=== PATIENT | male | born 1965 | race African-American/Black ===

== ENCOUNTER 2023-06-01 16:35 | Inpatient (IN) ==
[2023-06-01] MEDS: OPTIRAY 320 125ml IV ONE (16:27)
[~2023-06-01 16:35] MED LIST: LABETALOL HCL IV 5 MG/ML 20ML IV PRN
--- NOTE | 2023-06-01 16:43 | Emergency Department Note ---
Impression & Plan Acute CVA (cerebrovascular accident), Stroke-like symptoms ED Provider Note NAME: AD [id number] KADEN AGE: 58 SEX: M : 1965 ARRIVES VIA: Ambulance INFORMANT: Patient and EMS report ED PROVIDER(S): Tomer Mahoney MD CHIEF COMPLAINT: Left-sided weakness, slurred speech, facial droop MEDICAL DECISION MAKING: Patient presented as a code stroke by the time my examination after returning from CT the patient did not have any overt findings on his exam I did speak with telestroke neurologist Dr. Mario who did evaluate the patient via telestroke cart. Patient's blood work shows a normal white count mild anemia hemoglobin 13 with a normal platelet count and the patient's kidney functions unremarkable troponin not elevated. CT head negative. I did speak with on-call radiology Dr. Fritz who thought the patient may have had an area of sylvian Epistat patent. I did speak with Dr. Mario he stated that he was concerned that patient might have a carotid web versus focal dissection but states that management of care would be dual antiplatelet therapy. The patient was loaded with 300 of Plavix and 324 of aspirin. Patient not a TNK candidate for heparin candidate No need for transfer at this time per Dr. Mario. He did recommend keeping magnesium above 2 and order IV fluids. I did speak with the on-call hospitalist service Shazia Arias PA-C and the patient was admitted by the medicine service. Critical Care: I have personally spent 60 minutes of critical care time in direct management of this patient. This includes bedside care, interpretation of diagnostic studies, and testing, discussion with consultants, patient, and family members, and other require inpatient management activities. This 60 EMS report minutes is in excess of all separately billable procedures. Discussion w/ other healthcare providers: Shazia Arias PA-C with Dr. Eliezer Bonds inpatient medicine service Dr. Mario telestroke neurology [facility] Prior /Outside records reviewed: none Differential diagnosis: Infection, dehydration, metabolic abnormality, hypo/hyperglycemia, electrolyte imbalance, anemia, UTI, pneumonia, thyroid dysfunction among others were considered. Diagnostics, as interpreted by me: ECG: Sinus bradycardia, rate 55, normal intervals, normal axis, T wave version in lead III noncontiguous leads no ST elevations. Cardiac monitoring: An order was placed for continuous cardiac monitoring. The monitor shows a rate of 56 with sinus rhythm. Patient was placed on pulse oximetry Medical decision rules: none Imaging studies: I informally interpreted the patient's CT head does not show obvious ICH with formal report to follow. HPI: Patient presents due to concern for possible stroke. Last known well was 1514 and I did receive a medical command called via EMS reported that he had left-sided symptoms difficulty with ambulation left-sided weakness slurred Siuta and facial droop. When EMS arrived patient had an SBP in the 120s afebrile heart rate was normal satting well on room air and not tachypneic. 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 Patient denies any recent head strike or LOC does not take any blood thinning medication. The patient does have a history of mental wellness issues and does take medications for anxiety depression and bipolar disorder. Patient does [facility] and states he has been there for about 1 year. Patient states that his symptoms seem to have improved but they did last about 30 minutes in duration. PAST MEDICAL HISTORY: See Below PAST SURGICAL HISTORY: See Below SOCIAL HISTORY: See Below HOME MEDICATIONS: See Below ALLERGIES: See Below VITALS: See Below PHYSICAL EXAMINATION: GENERAL: NAD, non-toxic. EYE EXAM: Normal conjunctiva. PERRL, no anisocoria and EOM's grossly intact w/o pain. OROPHARYNX: Moist mucus membranes, grossly normal dentition. NECK: Trachea midline, no stridor. Supple, no nuchal rigidity, no adenopathy, non-tender. No signs of meningismus. FROM of the neck with good chin to chest and neck extension. LUNGS: Clear to auscultation. Normal chest wall mechanics. HEART: NSR, no MRG. ABDOMEN: Abdomen soft, non-tender, no masses, no rebound or guarding. BACK: No CVA TTP. SKIN: No rashes and no bruising. UPPER EXTREMITIES: Upper extremities are grossly normal. LOWER EXTREMITIES: Grossly normal, no edema. NEURO EXAM: A&O x3, cranial nerves II-XII grossly intact, normal speech, moves all 4 extremities. Good [id number], no drift and no sensory deficits. Past Med/Surg History Medical History (Updated 06/05/23 @ 15:55 by Tomer Mahoney MD) Mood disorder Surgical History (Updated 06/01/23 @ 21:49 by Shazia Arias PA-C) H/O shoulder surgery Family History (Updated 06/01/23 @ 21:50 by Shazia Arias PA-C) Other No significant family history Social History Smoking Status: Unknown if ever smoked Hx Alcohol Use: No Hx Substance Use: No Preferred Language: Surinamese Communication Ability: Unable Medical Delivery Driver Required: No Beliefs That Will Affect Care: None Current Living Situation: Other Current Living Situation Comment: [facility] Other Information That Helps Us Care for You: No Feels Safe at Home: Yes Safety Concerns: Feels Safe At This Time Assistive Devices: None Allergies Allergies Allergy/AdvReac Type Severity Reaction Status Date / Time risperidone [From Risperdal] Allergy Unknown Verified 06/01/23 19:42 Home Meds Home Medications Medication Instructions Recorded Confirmed aripiprazole 15 mg tablet (Abilify) 15 mg PO HS 06/01/23 06/01/23 benztropine 0.5 mg tablet 0.5 mg PO HS 06/01/23 06/01/23 hydroxyzine pamoate 50 mg capsule 150 mg PO HS 06/01/23 06/01/23 omeprazole 20 mg capsule,delayed 20 mg PO DAILY 06/01/23 06/01/23 release trazodone 100 mg tablet 200 mg PO HS 06/01/23 06/01/23 Results & Data (ED) Vital Signs Vital Signs - 24 hr 06/01/23 16:13 Temperature 36.7 C Temperature Source Oral Pulse Rate 57 L Respiratory Rate 15 Blood Pressure 133/83 Blood Pressure Mean 99 Pulse Oximetry 97 Oxygen Delivery Method Room Air Sepsis Recent Fever Within 48 Hours No Sepsis New/Unexplained Change in Mental Status No Sepsis Action Taken by Nursing No Action Required Home Medications Current Medication List: was personally reviewed by me Laboratory Data Attestation: I reviewed the patient's lab results. 06/02/23 14:07 06/02/23 14:07 Lab Results 06/01/23 Range/Units 16:39 WBC 9.12 (4.8-10.8) K/ul RBC 4.22 L (4.70-6.10) M/uL Hgb 13.2 L (14.0-18.0) g/dl Hct 37.6 L (42.0-52.0) % MCV 89.1 (80.0-100.0) fL MCH 31.3 (25.0-34.0) pg MCHC 35.1 (32.0-36.0) g/dL RDW Std Deviation 39.3 (36.4-46.3) fL RDW Coeff of Lakeisha 12.1 (11.5-14.5) % Plt Count 297 (130-400) K/uL MPV 9.5 (9.4-12.4) fL Immature Gran % (Auto) 0.2 % Neut % (Auto) 60.8 % Lymph % (Auto) 29.5 % Jay % (Auto) 7.6 % Eos % (Auto) 1.6 % Baso % (Auto) 0.3 % Neut # (Auto) 5.54 (1.40-6.50) K/uL Lymph # (Auto) 2.69 (1.20-3.40) K/uL Jay # (Auto) 0.69 H (0.11-0.59) K/uL Eos # (Auto) 0.15 (0.00-0.50) K/uL Baso # (Auto) 0.03 (0.00-0.20) K/uL Immature Gran # (Auto) 0.02 (0.01-0.20) K/uL PT 11.4 (9.0-12.0) Seconds INR 1.0 (0.9-1.1) APTT 28 (21-31) Seconds PTT Ratio 1.0 Sodium 134 L (136-145) mmol/L Potassium 4.1 (3.5-5.1) mmol/L Chloride 106 (98-107) mmol/L Carbon Dioxide 23 (21-32) mmol/L Anion Gap 5 (3-11) BUN 19 (6-23) mg/dl Creatinine 1.05 (0.6-1.4) mg/dl Est Cr Clr Drug Dosing 93.8 ml/min Est GFR ( Amer) 91.5 ml/min Est GFR (Non-Af Amer) 79.0 ml/min BUN/Creatinine Ratio 18.1 (10-20) Glucose 98 (70-99(Fasting)) mg/dl Calcium 8.9 (8.6-10.3) mg/dl Magnesium 1.8 (1.7-2.4) mg/dl Total Bilirubin 0.3 (0.2-1.0) mg/dl AST 18 (13-39) U/L ALT 22 (7-52) U/L Alkaline Phosphatase 106 H (34-104) U/L Troponin I High Sens < 2.3 (0-20) pg/ml Total Protein 6.7 (6.0-8.3) gm/dl Albumin 3.9 (3.4-5.0) gm/dl Globulin 2.8 (2.5-4.0) gm/dl Albumin/Globulin Ratio 1.4 (0.9-2) Administered Medications Discontinued Medications Aripiprazole (Aripiprazole 15 Mg Tab) 15 mg PO [facility] Stop: 07/01/23 21:29 Last Admin: 06/01/23 21:47 Dose: 15 mg Documented By: AMY Aspirin (Aspirin Chew 324 Mg) 324 mg PO NOW STA Stop: 06/01/23 17:18 Last Admin: 06/01/23 17:26 Dose: 324 mg Documented By: SUMMER Aspirin (Aspirin 81 Mg Ectab) 81 mg PO [facility] Stop: 07/02/23 08:59 Last Admin: 06/02/23 09:12 Dose: 81 mg Documented By: GURJIT Benztropine Mesylate (Benztropine Mesylate 0.5 Mg Tab) 0.5 mg PO [facility] Stop: 07/01/23 21:29 Last Admin: 06/01/23 21:47 Dose: 0.5 mg Documented By: AMY Clopidogrel Bisulfate (Clopidogrel Bisulfate 300 Mg Tab) 300 mg PO NOW STA Stop: 06/01/23 17:18 Last Admin: 06/01/23 17:26 Dose: 300 mg Documented By: SUMMER Clopidogrel Bisulfate (Clopidogrel Bisulfate 75 Mg Tab) 75 mg PO [facility] Stop: 07/02/23 08:59 Last Admin: 06/02/23 09:12 Dose: 75 mg Documented By: GURJIT Gadobutrol (Gadobutrol 65ml Vial) 10 ml IV ONCE ONE Stop: 06/01/23 19:20 Last Admin: 06/01/23 19:19 Dose: 10 ml Documented By: LENORA Heparin Sodium (Porcine) (Heparin Sod 5,000 Unit/0.5 Ml Vial) 5,000 units SQ Q8 [facility] Stop: 07/01/23 21:59 Last Admin: 06/02/23 06:26 Dose: 5,000 units Documented By: Admin: 06/01/23 21:48 Dose: 5,000 units Documented By: AMY Hydroxyzine HCl (Hydroxyzine Hcl 25 Mg Tab) 150 mg PO HS ROMIE Stop: 07/01/23 21:29 Last Admin: 06/01/23 21:47 Dose: 150 mg Documented By: AMY Magnesium Sulfate/Dextrose (Magnesium Sulfate / D5w) 1 gm in 100 mls @ 100 mls/hr IV NOW STA Stop: 06/01/23 18:17 Last Infusion: 06/01/23 19:57 Dose: Infused Documented By: [facility] Admin: 06/01/23 17:28 Dose: 100 mls/hr Documented By: ARS Sodium Chloride (Nss) 1,000 mls @ 999 mls/hr IV .Q1H1M ONE Stop: 06/01/23 18:19 Last Infusion: 06/01/23 21:14 Dose: Infused Documented By: Admin: 06/01/23 17:28 Dose: 999 mls/hr Documented By: ARS Sodium Chloride (Nss) 500 mls @ 125 mls/hr IV .Q4H ROMIE Stop: 07/01/23 19:44 Last Admin: 06/02/23 01:34 Dose: Not Given Documented By: Infusion: 06/02/23 01:33 Dose: Infused Documented By: Admin: 06/01/23 21:48 Dose: 125 mls/hr Documented By: GH Sodium Chloride (Nss) 1,000 mls @ 125 mls/hr IV .Q8H ROMIE Stop: 07/02/23 01:29 Last Admin: 06/02/23 09:13 Dose: 125 mls/hr Documented By: Infusion: 06/02/23 09:13 Dose: Infused Documented By: Admin: 06/02/23 01:31 Dose: 125 mls/hr Documented By: AMY Ioversol (Optiray 320 125ml) 118 ml IV ONCE ONE Stop: 06/01/23 16:26 Last Admin: 06/01/23 16:27 Dose: 118 ml Documented By: GRACE Ioversol (Optiray 320 125ml) 119 ml IV ONCE ONE Stop: 06/02/23 13:46 Last Admin: 06/02/23 13:46 Dose: 119 ml Documented By: FLORENCIA Ondansetron HCl (Ondansetron Inj 2 Mg/Ml 2 Ml Vial) 4 mg IV Q6H PRN PRN Reason: Nausea Stop: 07/01/23 21:07 Last Admin: 06/02/23 15:09 Dose: 4 mg Documented By: GLORY Pantoprazole Sodium (Pantoprazole 40 Mg Tab) 40 mg PO DAILY ROMIE Stop: 07/02/23 08:59 Last Admin: 06/02/23 09:12 Dose: 40 mg Documented By: GURJIT Rosuvastatin Calcium (Rosuvastatin Calcium 20 Mg Tab) 20 mg PO QAM ROMIE Stop: 07/02/23 08:59 Last Admin: 06/02/23 09:12 Dose: 20 mg Documented By: GURJIT Trazodone HCl (Trazodone Hcl 100 Mg Tab) 200 mg PO HS ROMIE Stop: 07/01/23 21:29 Last Admin: 06/01/23 21:47 Dose: 200 mg Documented By: AMY Imaging Data Radiologist's Impression: Head CT 06/01/23 16:15 CT OF THE HEAD WITHOUT CONTRAST CLINICAL HISTORY: neuro deficit, acute stroke suspected COMPARISON STUDY: No previous studies for comparison. CT DOSE: 1123.21 mGy.cm TECHNIQUE: Helical axial images of the head were obtained without IV contrast. Automated exposure control was utilized for the study. A dose lowering technique was utilized adhering to the principles of ALARA. FINDINGS: No acute intracranial hemorrhage, midline shift or mass effect is present. There is possible hyperdensity within a sylvian branch of the right middle cerebral artery on image 9 of 28. The ventricular system is unremarkable. The basal cisterns are patent. No extra-axial collections are present. There are no findings to suggest acute dural sinus thrombosis or acute territorial infarct. No significant calvarial abnormalities are present. Visualized portions of the sinuses and mastoid air cells are clear. IMPRESSION: 1. No acute intracranial hemorrhage or mass effect. 2. Possible hyperdensity within the sylvian branch of the right middle cerebral artery. This may reflect thrombus and could be correlated with clinical evidence for a right MCA territory stroke. MRI of the brain could be obtained for further evaluation. Findings discussed with Dr. Mahoney at time of dictation. ACT 112: Negative or not required by law. Electronically signed by: Manuel Fritz M.D. 06/01/2023 4:42 PM Head CTA 06/01/23 16:15 CTA ANGIOGRAPHY OF THE HEAD CLINICAL HISTORY: neuro deficit, acute stroke suspected COMPARISON STUDY: No previous studies for comparison. TECHNIQUE: Helical axial images of the head were obtained following uneventful intravenous administration of 118 cc of Optiray. Sagittal and coronal reconstructions were viewed as well as maximal intensity projections on an independent 3-D workstation. Automated exposure control was utilized for the study. A dose lowering technique was utilized adhering to the principles of ALARA. FINDINGS: No acute intracranial hemorrhage was identified on the head CT will be reported separately. Ventricular system is normal. Basal cisterns are patent. There are no extra axial collections. There is possible occlusion at the origin of a sylvian branch of the right middle cerebral artery on axial image 106 of 258. This could correspond to the hyperdense focus on head CT. The left M1 and M2 segments are patent. The left A2 segment is hypoplastic. Posterior circulation is intact. Right vertebral artery is dominant. There is no intracranial aneurysm. IMPRESSION: Possible occlusion at the origin of a sylvian branch of the right middle cerebral artery. This could be correlated with clinical evidence for an acute right MCA territory infarct. MRI could be obtained as indicated. ACT 112: Negative or not required by law. Electronically signed by: Manuel Fritz M.D. 06/01/2023 4:53 PM Neck CTA 06/01/23 16:15 CT ANGIOGRAPHY OF THE NECK WITH CONTRAST CLINICAL HISTORY: neuro deficit, acute stroke suspected COMPARISON STUDY: No previous studies for comparison. Technique: CT angiography of the carotid and vertebral arteries was obtained using Optiray and 3D reconstruction on an independent workstation. NASCET criteria was utilized. Automated exposure control was utilized for the study. A dose lowering technique was utilized adhering to the principles of ALARA. Findings: The bilateral vertebral arteries are patent. The left common carotid and cervical internal carotid arteries are patent. Shelf-like indentation of the proximal right internal carotid artery is noted. This is probably due to noncalcified atherosclerotic plaque. This results in approximate 40-50% stenosis of the proximal right internal carotid artery. There is no aneurysm within the neck. No acute dissection is present. IMPRESSION: 1. Focal shelf-like narrowing of the proximal right internal carotid artery which results in 40-50% narrowing. This is likely due to noncalcified atherosclerotic plaque or a carotid web. A dissection is considered less likely. 2. No additional stenoses within the bilateral common carotid, cervical internal carotid or vertebral arteries. ACT 112: Negative or not required by law. Electronically signed by: Manuel Fritz M.D. 06/01/2023 4:49 PM Brain MRI 06/01/23 17:19 MRI OF THE BRAIN WITHOUT CONTRAST CLINICAL HISTORY: L sided weakness COMPARISON STUDY: Head CT performed earlier today. TECHNIQUE: Utilizing a 1.5 Lizzie magnet and dedicated coil, multiplanar, multiecho imaging of the brain was performed without IV contrast. FINDINGS: There is a 3.9 x 1.7 cm focus of restricted diffusion within the right frontotemporal region. This is hypointense on the ADC map. This involves the insular cortex. This is consistent with an acute infarct. There is subtle associated FLAIR signal abnormality. There is no mass effect. There is no evidence for hemorrhagic conversion. No additional acute infarcts are present. Ventricular system is normal. Basal cisterns are patent. No extra axial collections are present. Calvarial signal is normal. No evidence for sinusitis. There is no mastoid fluid. IMPRESSION: 3.9 x 1.7 cm right frontotemporal acute infarct. This corresponds to the site of vessel occlusion on CTA. No mass effect. Subtle associated FLAIR signal abnormality. No hemorrhage. ACT 112: Negative or not required by law. Electronically signed by: Manuel Fritz M.D. 06/01/2023 7:10 PM Head MRA 06/01/23 17:20 MRA OF THE INTRACRANIAL CIRCULATION WITHOUT CONTRAST CLINICAL HISTORY: eval L sided weakness COMPARISON STUDY: Head CT and CTA of the head performed earlier today. TECHNIQUE: Utilizing a 1.5 Lizzie magnet and 3-D [id number] technique, unenhanced MRA of the intracranial circulation was obtained. FINDINGS: There is occlusion of a sylvian branch of the right middle cerebral artery shown on axial image 92 of 208. This corresponds to the site of occlusion shown on CT performed earlier today and the acute infarct shown on MRI of the brain which will be reported separately. There is asymmetric diminished flow within the right sylvian vessels. Otherwise, the intracranial vessels are patent. There is no intracranial aneurysm. No stenoses are identified. There is no dissection within the intracranial vessels. IMPRESSION: 1. Occlusion of a sylvian branch of the right middle cerebral artery which confirms the occlusion on CTA performed earlier today and corresponds to the acute infarct on brain MRI which will be reported separately. Asymmetric diminished flow within the right sylvian vessels. 2. Otherwise, patent intracranial vessels. ACT 112: Negative or not required by law. Electronically signed by: Manuel Fritz M.D. 06/01/2023 7:48 PM Neck MRA 06/01/23 18:02 MR angio neck wo/w con CLINICAL HISTORY: eval for stroke COMPARISON STUDY: CTA of the neck performed earlier today. TECHNIQUE: Utilizing a 1.5 Lizzie magnet and dedicated coil, unenhanced and contrast-enhanced MRA of the neck was obtained. Intravenous injection of 10 cc of Gadavist was uneventful. FINDINGS: This exam is moderately compromised by motion artifact. Focal narrowing of the proximal right internal carotid artery is better depicted on CTA performed earlier today . The left common carotid and cervical internal carotid arteries are unremarkable. Bilateral vertebral arteries are patent. IMPRESSION: 1. Exam moderately compromised by motion artifact. Focal narrowing of the proximal right internal carotid artery, better depicted on CTA performed earlier today. Please see that report for further discussion. 2. Otherwise, grossly unremarkable MRI of the neck. ACT 112: Negative or not required by law. Electronically signed by: Manuel Fritz M.D. 06/01/2023 8:38 PM Discharge Plan Visit Data Chief Complaint: Stroke Alert ED Provider: Tomer Mahoney Discharge Problem: Acute CVA (cerebrovascular accident), Stroke-like symptoms Patient Disposition: Admitted As Inpatient Discharge Instructions Interventions: ED Discharge Assessment Last Done: 06/01/23 20:12
[2023-06-01 16:49] LABS: Basophils # (auto) 0.03 K/uL (0.00-0.20); Basophils % (auto) 0.3 %; Eosinophils # (auto) 0.15 K/uL (0.00-0.50); Eosinophils % (auto) 1.6 %; Hematocrit (blood only) 37.6 % (42.0-52.0); Hemoglobin 13.2 g/dl (14.0-18.0); Immature Granulocytes # (auto) 0.02 K/uL (0.01-0.20); Immature Granulocytes % (auto) 0.2 %; Lymphocytes # (auto) 2.69 K/uL (1.20-3.40); Lymphocytes % (auto) 29.5 %; Mean Corpuscular Hemoglobin 31.3 pg (25.0-34.0); Mean Corpuscular Hgb Conc 35.1 g/dL (32.0-36.0); Mean Corpuscular Volume 89.1 fL (80.0-100.0); Mean Platelet Volume 9.5 fL (9.4-12.4); Monocytes # (auto) 0.69 K/uL (0.11-0.59); Monocytes % (auto) 7.6 %; Neutrophils # (auto) 5.54 K/uL (1.40-6.50); Neutrophils % (auto) 60.8 %; Platelet Count 297 K/uL (130-400); RDW Coefficient of Variation 12.1 % (11.5-14.5); RDW Standard Deviation 39.3 fL (36.4-46.3); Red Blood Count 4.22 M/uL (4.70-6.10); White Blood Count 9.12 K/ul (4.8-10.8)
[2023-06-01 17:01] LABS: Partial Thromboplastin Time 28 Seconds (21-31); Prothrombin Time 11.4 Seconds (9.0-12.0)
[2023-06-01 17:09] LABS: Alanine Aminotransferase 22 U/L (7-52); Albumin Globulin Ratio 1.4 (0.9-2); Albumin Level 3.9 gm/dl (3.4-5.0); Alkaline Phosphatase 106 U/L (34-104); Anion Gap 5 (3-11); Aspartate Aminotransferase 18 U/L (13-39); BUN Creatinine Ratio 18.1 (10-20); Bilirubin,Total 0.3 mg/dl (0.2-1.0); Blood Urea Nitrogen 19 mg/dl (6-23); Calcium 8.9 mg/dl (8.6-10.3); Carbon Dioxide 23 mmol/L (21-32); Chloride 106 mmol/L (98-107); Creatinine Clr Calc Pharmacy 93.8 ml/min; Est GFR (African American) 91.5 ml/min; Globulin 2.8 gm/dl (2.5-4.0); Glucose 98 mg/dl (70-99(Fasting)); Magnesium 1.8 mg/dl (1.7-2.4); Potassium 4.1 mmol/L (3.5-5.1); Sodium 134 mmol/L (136-145); Total Protein 6.7 gm/dl (6.0-8.3)
[2023-06-01 17:16] LABS: Troponin I High Sensitivity < 2.3 pg/ml (0-20)
[2023-06-01] MEDS: ASPIRIN CHEW 324 MG PO STA (17:26)
[2023-06-01] MEDS: CLOPIDOGREL BISULFATE 300 MG TAB PO STA (17:26)
[2023-06-01] MEDS: SODIUM CHLORIDE 0.9% 1,000 ML IV ONE (17:28)
[2023-06-01] MEDS: MAGNESIUM SULFATE / D5W 1 GM/100 ML BAG IV STA (17:28)
--- NOTE | 2023-06-01 18:58 | History & Physical Report ---
Date of Service June 01, 2023 Assessment & Plan (1) Stroke-like symptoms: Plan: This is a 58yo M [facility] [place] with a PMH of mood disorder and other medical problems listed below who presents with strokelike symptoms. Per ED provider discussion with stroke alert team and review of imaging, was concern for possible vessel abnormality Recommended obtaining MR brain wo, MRA head and neck as well as initiating Crestor 20mg and dual antiplatelet therapy Imaging is pending - see addendum for discussion of results Given 324mg aspirin, 300mg Plavix in ED Continue with aspirin 81mg, plavix 75mg, Crestor 20mg daily Obtain echo with bubble study, fasting lipids, a1c, routine neuro consult PT/OT/speech eval, neuro checks (2) Mood disorder: Plan: Continue Abilify, Cogentin, Vistaril, trazodone DVT Ppx: SQ heparin Code status: FULL PCP: VIJAY Pathak Dispo: Admitted to PCU Patient seen in collaboration with Dr. Martins. Please see addendum. History of Present Illness Chief Complaint: stroke eval Primary Care Provider: VIJAY Pathak This is a 58yo M [facility] [place] with a PMH of mood disorder and other medical problems listed below who presents with strokelike symptoms. Last known well at 1515. Reports having left sided weakness in arm and leg as well as slurred speech and facial droop that lasted for approximately 30 minutes, per patient. Was brought in by EMS and by the time he was evaluated by ED provider, weakness and symptoms had resolved. No Fall or LOC. Allergies Allergy/AdvReac Type Severity Reaction Status Date / Time risperidone [From Risperdal] Allergy Unknown Verified 06/01/23 19:42 Home Medications Medication Instructions Recorded Confirmed Type aripiprazole 15 mg tablet (Abilify) 15 mg PO HS 06/01/23 06/01/23 History benztropine 0.5 mg tablet 0.5 mg PO HS 06/01/23 06/01/23 History hydroxyzine pamoate 50 mg capsule 150 mg PO HS 06/01/23 06/01/23 History omeprazole 20 mg capsule,delayed 20 mg PO DAILY 06/01/23 06/01/23 History release trazodone 100 mg tablet 200 mg PO HS 06/01/23 06/01/23 History Past Med/Surg History Medical History (Updated 06/02/23 @ 08:24 by Taye Higuera DO) Mood disorder Surgical History (Updated 06/01/23 @ 21:49 by Sahzia Arias PA-C) H/O shoulder surgery Family History (Updated 06/01/23 @ 21:50 by Shazia Arias PA-C) Other No significant family history Social History Smoking Status: Unknown if ever smoked Hx Alcohol Use: No Hx Substance Use: No Preferred Language: Chinese Communication Ability: Effective 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 Martins's addendum for physical exam. Results & Data Results & Data Vital Signs (Past 12 Hours) Vital Signs Temp Pulse Resp BP Pulse Ox O2 Del Method 06/01/23 17:09 56 L 06/01/23 16:45 59 L 23 133/83 99 06/01/23 16:43 58 L 23 98 06/01/23 16:13 36.7 C 57 L 15 133/83 97 Room Air Laboratory Results Short CBC 06/01/23 Range/Units 16:39 WBC 9.12 (4.8-10.8) K/ul Hgb 13.2 L (14.0-18.0) g/dl Hct 37.6 L (42.0-52.0) % Plt Count 297 (130-400) K/uL BMP 06/01/23 16:39 Sodium 134 L Potassium 4.1 Chloride 106 Carbon Dioxide 23 BUN 19 Creatinine 1.05 Glucose 98 Calcium 8.9 Liver Function 06/01/23 Range/Units 16:39 Total Bilirubin 0.3 (0.2-1.0) mg/dl AST 18 (13-39) U/L ALT 22 (7-52) U/L Alkaline Phosphatase 106 H (34-104) U/L Albumin 3.9 (3.4-5.0) gm/dl ECG Additional Comments: sinus bradycardia Code Status & VTE Plan VTE Prophylaxis Plan VTE Prophylaxis will be ordered: Yes Supervising Physician Co-Signing Physician Notes Patient is a 58-year-old male who presented to the ED with concern for stroke. Patient reports that he suddenly felt his limbs getting weaker and had slurring of speech. He did not fall; no trauma. He reports that the weakness was mostly on the left side. He reports that the symptoms resolved after presentation to the ED without any intervention. Past medical history; history of mood disorder, no history of hypertension, diabetes or hyperlipidemia, cardiac arrhythmia Past surgical history; history of surgery of left shoulder Family history; no significant family history On physical examination; Constitutional: WD/WN, vitals as above, NAD, sitting up in bed, pleasant, conversing easily Respiratory: normal respiratory effort, lungs clear to auscultation, no wheeze, rales, rhonchi. Normal insp/exp effort, no accessory muscle use Cardiovascular: RRR, no murmur, no edema Vessels: no JVD or carotid bruit Chest: normal inspection of chest Abdomen: normal bowel sounds, soft, nontender, no hepatosplenomegaly Musculoskeletal: no cyanosis or clubbing, extremities motor strength 5/5 Skin: no rashes, warm and dry normal turgor Neurologic: PERRL, EOMI, accommodation nl, no face palsy, no dysarthria CN's II- XI intact bilaterally and moves all extremities. No focal neurological deficit was found. 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 Discussion was done with teleneurology from [place] after finding in the MRI over the phone. No indication for emergent transfer. Vessel occlusion is very distal from the site where intervention can be done. Recommended dual antiplatelet therapy, statin, echo, IV hydration, permissive hypertension for next 24 to 48 hours. If there is any progression of the neurological deficit or any new deficits arise; recommendation was to repeat CT head and CTA head and neck.
--- NOTE | 2023-06-01 19:12 | Magnetic Resonance Report ---
MRI OF THE BRAIN WITHOUT CONTRAST CLINICAL HISTORY: L sided weakness COMPARISON STUDY: Head CT performed earlier today. TECHNIQUE: Utilizing a 1.5 Lizzie magnet and dedicated coil, multiplanar, multiecho imaging of the bra in was performed without IV contrast. FINDINGS: There is a 3.9 x 1.7 cm focus of restricted diffusion within the right frontotemporal regio n. This is hypointense on the ADC map. This involves the insular cortex. This is consistent with an a cute infarct. There is subtle associated FLAIR signal abnormality. There is no mass effect. There is no evidence for hemorrhagic conversion. No additional acute infarcts are present. Ventricular system is normal. Basal cisterns are patent. No extra axial collections are present. Calvarial signal is nor mal. No evidence for sinusitis. There is no mastoid fluid. IMPRESSION: 3.9 x 1.7 cm right frontotemporal acute infarct. This corresponds to the site of vessel occlusion on CTA. No mass effect. Subtle associated FLAIR signal abnormality. No hemorrhage. ACT 112: Negative or not required by law. Electronically signed by: Manuel Fritz M.D. 06/01/2023 7:10 PM
[2023-06-01] MEDS: GADOBUTROL 65ML VIAL IV ONE (19:19)
--- NOTE | 2023-06-01 19:49 | Magnetic Resonance Report ---
MRA OF THE INTRACRANIAL CIRCULATION WITHOUT CONTRAST CLINICAL HISTORY: eval L sided weakness COMPARISON STUDY: Head CT and CTA of the head performed earlier today. TECHNIQUE: Utilizing a 1.5 Lizzie magnet and 3-D [id number] technique, unenhanced MRA of the intra cranial circulation was obtained. FINDINGS: There is occlusion of a sylvian branch of the right middle cerebral artery shown on axial i mage 92 of 208. This corresponds to the site of occlusion shown on CT performed earlier today and the acute infarct shown on MRI of the brain which will be reported separately. There is asymmetric dimin ished flow within the right sylvian vessels. Otherwise, the intracranial vessels are patent. There is no intracranial aneurysm. No stenoses are identified. There is no dissection within the intracranial vessels. IMPRESSION: 1. Occlusion of a sylvian branch of the right middle cerebral artery which confirms the occlusion on CTA performed earlier today and corresponds to the acute infarct on brain MRI which will be reported separately. Asymmetric diminished flow within the right sylvian vessels. 2. Otherwise, patent intracranial vessels. ACT 112: Negative or not required by law. Electronically signed by: Manuel Frtiz M.D. 06/01/2023 7:48 PM
--- NOTE | 2023-06-01 20:41 | Magnetic Resonance Report ---
MR angio neck wo/w con CLINICAL HISTORY: eval for stroke COMPARISON STUDY: CTA of the neck performed earlier today. TECHNIQUE: Utilizing a 1.5 Lizzie magnet and dedicated coil, unenhanced and contrast-enhanced MRA of t he neck was obtained. Intravenous injection of 10 cc of Gadavist was uneventful. FINDINGS: This exam is moderately compromised by motion artifact. Focal narrowing of the proximal rig ht internal carotid artery is better depicted on CTA performed earlier today . The left common caroti d and cervical internal carotid arteries are unremarkable. Bilateral vertebral arteries are patent. IMPRESSION: 1. Exam moderately compromised by motion artifact. Focal narrowing of the proximal right internal car otid artery, better depicted on CTA performed earlier today. Please see that report for further discu ssion. 2. Otherwise, grossly unremarkable MRI of the neck. ACT 112: Negative or not required by law. Electronically signed by: Manuel Fritz M.D. 06/01/2023 8:38 PM
[2023-06-01] MEDS ORDERED: PHARMACIST DISCHARGE MED REC CONSULT PRN (21:08)
[2023-06-01] MEDS ORDERED: ACETAMINOPHEN 325 MG TAB PO PRN (21:08)
[2023-06-01] MEDS ORDERED: POLYETHYLENE (MIRALAX) 17 GM PACK PO PRN (21:08)
[2023-06-01] MEDS: BENZTROPINE MESYLATE 0.5 MG TAB PO SCH (21:47)
[2023-06-01] MEDS: hydrOXYzine HCl 25 MG TAB PO SCH (21:47)
[2023-06-01] MEDS: ARIPiprazole 15 MG TAB PO SCH (21:47)
[2023-06-01] MEDS: traZODone HCL 100 MG TAB PO SCH (21:47)
[2023-06-01] MEDS: HEPARIN SOD 5,000 UNIT/0.5 ML VIAL SQ SCH (21:48)
[2023-06-01] MEDS: SODIUM CHLORIDE 0.9% 500 ML IV SCH (21:48)
[2023-06-02] MEDS: SODIUM CHLORIDE 0.9% 1,000 ML IV SCH (01:31)
[2023-06-02 06:55] LABS: Hematocrit (blood only) 36.7 % (42.0-52.0); Hemoglobin 12.5 g/dl (14.0-18.0); Mean Corpuscular Hemoglobin 30.9 pg (25.0-34.0); Mean Corpuscular Hgb Conc 34.1 g/dL (32.0-36.0); Mean Corpuscular Volume 90.6 fL (80.0-100.0); Mean Platelet Volume 9.9 fL (9.4-12.4); Platelet Count 284 K/uL (130-400); RDW Coefficient of Variation 12.1 % (11.5-14.5); RDW Standard Deviation 40.3 fL (36.4-46.3); Red Blood Count 4.05 M/uL (4.70-6.10); White Blood Count 7.06 K/ul (4.8-10.8)
[2023-06-02 07:29] LABS: BUN Creatinine Ratio 15.8 (10-20); Calcium 8.5 mg/dl (8.6-10.3); Chol HDL Ratio 4.5 (0-5); Creatinine Clr Calc Pharmacy 92.5 ml/min; Est GFR (African American) 103.3 ml/min; Est GFR (Non-African American) 89.1 ml/min
--- NOTE | 2023-06-02 07:39 | CT Scan Report ---
CTA ANGIOGRAPHY OF THE HEAD CLINICAL HISTORY: neuro deficit, acute stroke suspected COMPARISON STUDY: No previous studies for comparison. TECHNIQUE: Helical axial images of the head were obtained following uneventful intravenous administr ation of 118 cc of Optiray. Sagittal and coronal reconstructions were viewed as well as maximal inten sity projections on an independent 3-D workstation. Automated exposure control was utilized for the study. A dose lowering technique was utilized adhering to the principles of ALARA. FINDINGS: No acute intracranial hemorrhage was identified on the head CT will be reported separately. Ventricular system is normal. Basal cisterns are patent. There are no extra axial collections. There is possible occlusion at the origin of a sylvian branch of the right middle cerebral artery on axial image 106 of 258. This could correspond to the hyperdense focus on head CT. The left M1 and M2 segme nts are patent. The left A2 segment is hypoplastic. Posterior circulation is intact. Right vertebral artery is dominant. There is no intracranial aneurysm. IMPRESSION: Possible occlusion at the origin of a sylvian branch of the right middle cerebral artery . This could be correlated with clinical evidence for an acute right MCA territory infarct. MRI could be obtained as indicated. ACT 112: Negative or not required by law. Electronically signed by: Manuel Fritz M.D. 06/01/2023 4:53 PM
--- NOTE | 2023-06-02 07:39 | CT Scan Report ---
CT ANGIOGRAPHY OF THE NECK WITH CONTRAST CLINICAL HISTORY: neuro deficit, acute stroke suspected COMPARISON STUDY: No previous studies for comparison. Technique: CT angiography of the carotid and vertebral arteries was obtained using Optiray and 3D rec onstruction on an independent workstation. NASCET criteria was utilized. Automated exposure control was utilized for the study. A dose lowering technique was utilized adhering to the principles of ALA RA. Findings: The bilateral vertebral arteries are patent. The left common carotid and cervical internal carotid arteries are patent. Shelf-like indentation of the proximal right internal carotid artery is noted. This is probably due to noncalcified atherosclerotic plaque. This results in approximate 40-50 % stenosis of the proximal right internal carotid artery. There is no aneurysm within the neck. No ac sonya dissection is present. IMPRESSION: 1. Focal shelf-like narrowing of the proximal right internal carotid artery which results in 40-50% n arrowing. This is likely due to noncalcified atherosclerotic plaque or a carotid web. A dissection is considered less likely. 2. No additional stenoses within the bilateral common carotid, cervical internal carotid or vertebral arteries. ACT 112: Negative or not required by law. Electronically signed by: Manuel Fritz M.D. 06/01/2023 4:49 PM
--- NOTE | 2023-06-02 07:39 | CT Scan Report ---
CT OF THE HEAD WITHOUT CONTRAST CLINICAL HISTORY: neuro deficit, acute stroke suspected COMPARISON STUDY: No previous studies for comparison. CT DOSE: 1123.21 mGy.cm TECHNIQUE: Helical axial images of the head were obtained without IV contrast. Automated exposure con trol was utilized for the study. A dose lowering technique was utilized adhering to the principles o f ALARA. FINDINGS: No acute intracranial hemorrhage, midline shift or mass effect is present. There is possibl e hyperdensity within a sylvian branch of the right middle cerebral artery on image 9 of 28. The vent ricular system is unremarkable. The basal cisterns are patent. No extra-axial collections are present . There are no findings to suggest acute dural sinus thrombosis or acute territorial infarct. No sign ificant calvarial abnormalities are present. Visualized portions of the sinuses and mastoid air cells are clear. IMPRESSION: 1. No acute intracranial hemorrhage or mass effect. 2. Possible hyperdensity within the sylvian branch of the right middle cerebral artery. This may refl ect thrombus and could be correlated with clinical evidence for a right MCA territory stroke. MRI of the brain could be obtained for further evaluation. Findings discussed with Dr. Mahoney at time of dict ation. ACT 112: Negative or not required by law. Electronically signed by: Manuel Fritz M.D. 06/01/2023 4:42 PM
[2023-06-02 08:00] LABS: Estimated Average Glucose 114 mg/dl; Hemoglobin A1C 5.6 % (4.5-5.6)
--- NOTE | 2023-06-02 08:16 | Neurology Consultation ---
Date of Consultation June 02, 2023 Assessment & Plan (1) Acute ischemic right MCA stroke: -Continue DAPT with ASA + Plavix x 21 days, ASA monotherapy thereafter -High dose statin, goal LDL <70 -TTE with bubble study -PT/OT/ST evaluations -RTC 6 wks for OP f/u (2) Dyslipidemia: - high dose statin Telehealth Consultation Telehealth Information Telehealth Information: I performed this visit using a real-time telehealth connection between my location and the patients location ([facility]). After connecting through interactive tele-video, patient was identified by name and date of and/or wristband check.Patient (or authorized healthcare textiles sales representative) was informed that this was a telemedicine visit and it was being conducted confidentially over secure lines. My office door was closed and no one else was present in the room with me.Patient (or authorized healthcare textiles sales representative) provided consent to proceed with the visit, expressed an understanding of privacy and security of the telemedicine visit, and gave permission to have a hospital textiles sales representative in the room in order to assist with the visit and to conduct portions of the visit, as needed. I informed the patient (or authorized healthcare textiles sales representative) that I reviewed their record and presented the opportunity for them to ask any questions regarding the visit today. The patient agreed to participate. History of Present Illness Reason for Consultation: Stroke like symptoms Attending Physician: Marietta Gabriel MD History of Present Illness 58 y/o incarcerated male presented to hospital with episode of left arm and leg weakness with speech changes. Patient says he was walking and then suddenly fell, he didn't lose consciousness. He has some left sided weakness which he says resolved. He had a headache with the event but has no headache at present. Symptoms were reported to last about 30 minutes and resolve. Patient was evaluated with CT/CTA which revealed a R M2 branch occlusion and mild stenosis of the R ICA origin. He underwent MRI which shows a R sided stroke involving the insular cortex. Denies any previous episodes like this. No CP or SOB. Allergies Allergy/AdvReac Type Severity Reaction Status Date / Time risperidone [From Risperdal] Allergy Unknown Verified 06/01/23 19:42 Home Medications Medication Instructions Recorded Confirmed Type aripiprazole 15 mg tablet (Abilify) 15 mg PO HS 06/01/23 06/01/23 History benztropine 0.5 mg tablet 0.5 mg PO HS 06/01/23 06/01/23 History hydroxyzine pamoate 50 mg capsule 150 mg PO HS 06/01/23 06/01/23 History omeprazole 20 mg capsule,delayed 20 mg PO DAILY 06/01/23 06/01/23 History release trazodone 100 mg tablet 200 mg PO HS 06/01/23 06/01/23 History Patient History Medical History (Updated 06/02/23 @ 08:24 by Taye Higuera DO) Mood disorder Surgical History (Updated 06/01/23 @ 21:49 by Shazia Arias PA-C) H/O shoulder surgery Family History (Updated 06/01/23 @ 21:50 by Shazia Arias PA-C) Other No significant family history Social History Smoking Status: Unknown if ever smoked Hx Alcohol Use: No Hx Substance Use: No Preferred Language: Belizean Communication Ability: Effective 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 Beliefs That Will Affect Care: None Current Living Situation: Other Current Living Situation Comment: [facility] Other Information That Helps Us Care for You: No Feels Safe at Home: Yes Safety Concerns: Feels Safe At This Time Assistive Devices: Denture - Upper and Glasses Physical Exam NIHSS 0 Mental status: AOx3, normal speech, no dysarthria, no aphasia, memory intact to recent and remote events, fund of knowledge appropriate CN: pupils equal, EOMI, face symmetric, hearing intact to spoken voice, tongue midline Motor: antigravity power in all 4, no drift Sensory: intact to light touch Coordination: intact to FNF Reflexes: cannot be performed on telemedicine Gait: deferred Results & Data Vital Signs (Past 12 Hours) Vital Signs Temp Pulse Pulse Resp BP Pulse Ox O2 Del Method 06/02/23 06:43 36.6 C 45 L 18 110/66 97 Room Air 06/02/23 03:32 36.8 C 47 L 16 102/59 L 96 Room Air 06/02/23 00:29 46 L 06/01/23 23:04 36.5 C 47 L 16 97/52 L 97 Room Air 06/01/23 21:09 36.4 C L 51 L 16 122/81 99 Room Air 06/01/23 21:08 Room Air 06/01/23 20:55 53 L Laboratory Results LDL 119 A1C 5.6% Diagnostic Findings CTA: right ICA stenosis at origin, R M2 branch occlusion MRI: acute ischemic stroke involving the right insular cortex Medications Administered Started on ASA/Plavix on admission
[2023-06-02] MEDS: CLOPIDOGREL BISULFATE 75 MG TAB PO SCH (09:12)
[2023-06-02] MEDS: ASPIRIN 81 MG ECTAB PO SCH (09:12)
[2023-06-02] MEDS: ROSUVASTATIN CALCIUM 20 MG TAB PO SCH (09:12)
[2023-06-02] MEDS: PANTOprazole 40 MG TAB PO SCH (09:12)
--- NOTE | 2023-06-02 10:43 | Electrocardiogram Report ---
Test Reason : Blood Pressure : / mmHG Vent. Rate : 055 BPM Atrial Rate : 055 BPM P-R Int : 150 ms QRS Dur : 080 ms QT Int : 436 ms P-R-T Axes : 033 -01 017 degrees QTc Int : 417 ms Sinus bradycardia Septal infarct , age undetermined Abnormal ECG No previous ECGs available Confirmed by Wale Houston ([id number]) on 06/02/2023 10:43:27 AM Referred By: [facility] Confirmed By:Wale Houston
--- NOTE | 2023-06-02 11:16 | Pharmacy Report ---
- Date of Service June 02, 2023 - Pharmacy CVA/TIA Medication Review Medications to Prevent Stroke handout has been added to the patients discharge packet. Antiplatelet(s) * Aspirin 81 mg PO daily + Clopidogrel 75 mg PO daily x 21 days then Aspirin monotherapy thereafter Cholesterol * High intensity statin: rosuvastatin 20 mg daily DVT Prophylaxis * Heparin SQ Therapeutic Anticoagulation * No history of Afib/Aflutter noted Type 2 Diabetes * Patient does not have T2DM
[2023-06-02] MEDS: OPTIRAY 320 125ml IV ONE (13:46)
--- NOTE | 2023-06-02 13:54 | Hospitalist Progress Note ---
Date of Service June 02, 2023 Assessment & Plan Admission and Anticipated Discharge Date Admission Date: June 01, 2023 Results & Data Results & Data Vital Signs (Past 12 Hours) Vital Signs Temp Pulse Pulse Resp BP Pulse Ox O2 Del Method 06/02/23 11:30 36.6 C 50 L 17 105/77 96 Room Air 06/02/23 09:30 44 L 06/02/23 06:43 36.6 C 45 L 18 110/66 97 Room Air 06/02/23 03:32 36.8 C 47 L 16 102/59 L 96 Room Air
--- NOTE | 2023-06-02 14:10 | CT Scan Report ---
CT head/brain wo con CLINICAL HISTORY: 58 years-old Male with neuro deficit, acute stroke suspected. Acute stroke like sy mptoms TECHNIQUE: Multiple axial CT images of the head were obtained without contrast. A dose lowering tech nique was utilized adhering to the principles of ALARA. CT DOSE: 1325.86 mGy.cm COMPARISON: Brain MRI 06/01/2023 FINDINGS: No acute intracranial hemorrhage, midline shift, intracranial mass, hydrocephalus, or abnormal extra- axial collection. Progressive cytotoxic edema related to the acute right MCA infarct, previously cristela ured at 3.9 cm on yesterday's MRI. Right MCA thrombus. The calvarium is intact. The paranasal sinuses, mastoid air cells, and middle ear cavities are clear . IMPRESSION: 1. Progressive cytotoxic edema related to the acute right MCA infarct described on yesterday's MRI. 2. Please refer to the CTA head of same day for discussion of the right MCA thrombus. ACT 112: Negative or not required by law. The above report was generated using voice recognition software. It may contain grammatical, syntax o r spelling errors. Electronically signed by: Schuyler Vinson M.D. 06/02/2023 2:08 PM
--- NOTE | 2023-06-02 14:10 | CT Scan Report ---
CT ANGIOGRAPHY OF THE NECK WITH CONTRAST CLINICAL HISTORY: neuro deficit, acute stroke suspected COMPARISON STUDY: CT neck 06/01/2023. Technique: CT angiography of the carotid and vertebral arteries was obtained using Optiray and 3D rec onstruction on an independent workstation. NASCET criteria was utilized. Automated exposure control was utilized for the study. A dose lowering technique was utilized adhering to the principles of ALA RA. Findings: The bilateral vertebral arteries are patent. Small focal fenestration within the mid left v ertebral artery, unchanged. The left common carotid and cervical internal carotid arteries are patent . Shelf-like indentation of the proximal right internal carotid artery is again noted. This remains u nchanged. This is probably due to noncalcified atherosclerotic plaque. This results in approximate 40 -50% stenosis of the proximal right internal carotid artery. There is no aneurysm within the neck. No acute dissection is present. IMPRESSION: 1. Focal shelf-like narrowing of the proximal right internal carotid artery which results in 40-50% n arrowing, unchanged. This is likely due to noncalcified atherosclerotic plaque or a carotid web. No e vidence for a dissection. 2. No additional stenoses within the bilateral common carotid, cervical internal carotid or vertebral arteries. ACT 112: Negative or not required by law. Electronically signed by: Santy Sagastume M.D. 06/02/2023 2:09 PM
--- NOTE | 2023-06-02 14:12 | CT Scan Report ---
CTA ANGIOGRAPHY OF THE HEAD CLINICAL HISTORY: neuro deficit, acute stroke suspected COMPARISON STUDY: CTA of the head and MRA of the head June 01, 2023. TECHNIQUE: Helical axial images of the head were obtained following uneventful intravenous administr ation of 119 cc of Optiray. Sagittal and coronal reconstructions were viewed as well as maximal inten sity projections on an independent 3-D workstation. Automated exposure control was utilized for the study. A dose lowering technique was utilized adhering to the principles of ALARA. FINDINGS: Please note that the head CT will be reported separately. Hypodensity within the right MCA territory represents an acute infarct, better depicted on that exam. The intracranial portion of the right internal carotid artery is patent. There is abrupt cut off of the proximal right middle cerebra l artery. This portion of the vessel was patent on CTA of June 01, 2023. Diminished flow within the sylvian branches of the right middle cerebral artery has significantly decreased since prior CTA. The left M1, M2, A1 and A2 segments are patent. The right A1 and A2 segments are patent. There is no int racranial aneurysm. The intracranial portions of the vertebral arteries are patent. The basilar arter y is patent. The bilateral posterior cerebral arteries are patent. There is irregularity of the right P2 segment. This may be artifactual. IMPRESSION: 1. Interval occlusion of the proximal right middle cerebral artery, a new finding since CTA of June 01, 2023. Significant interval decrease in flow within right MCA sylvian branches with multiple occlu ded sylvian branches. Thrombosis has progressed since prior CTA. These findings will be called/faxed to ordering provider at time of dictation. 2. Irregularity of the right P2 segment. This is probably artifactual. ACT 112: Negative or not required by law. Electronically signed by: Manuel Fritz M.D. 06/02/2023 2:11 PM
[2023-06-02] MEDS ORDERED: SODIUM CHLORIDE 0.9% 1,000 ML IV SCH (14:15)
[2023-06-02 14:19] LABS: Basophils # (auto) 0.03 K/uL (0.00-0.20); Basophils % (auto) 0.2 %; Eosinophils # (auto) 0.09 K/uL (0.00-0.50); Eosinophils % (auto) 0.7 %; Hematocrit (blood only) 38.1 % (42.0-52.0); Hemoglobin 13.1 g/dl (14.0-18.0); Immature Granulocytes # (auto) 0.06 K/uL (0.01-0.20); Immature Granulocytes % (auto) 0.5 %; Lymphocytes # (auto) 1.55 K/uL (1.20-3.40); Lymphocytes % (auto) 12.9 %; Mean Corpuscular Hemoglobin 31.3 pg (25.0-34.0); Mean Corpuscular Hgb Conc 34.4 g/dL (32.0-36.0); Mean Corpuscular Volume 90.9 fL (80.0-100.0); Mean Platelet Volume 9.5 fL (9.4-12.4); Monocytes # (auto) 0.56 K/uL (0.11-0.59); Monocytes % (auto) 4.7 %; Neutrophils # (auto) 9.74 K/uL (1.40-6.50); Platelet Count 298 K/uL (130-400); RDW Coefficient of Variation 12.2 % (11.5-14.5); RDW Standard Deviation 40.4 fL (36.4-46.3); Red Blood Count 4.19 M/uL (4.70-6.10); White Blood Count 12.03 K/ul (4.8-10.8)
[2023-06-02 14:30] LABS: Partial Thromboplastin Time 28 Seconds (21-31); Prothrombin Time 11.4 Seconds (9.0-12.0)
--- NOTE | 2023-06-02 14:30 | Discharge Summary ---
Discharge Summary Date of Service June 02, 2023 Notes For Next Care Provider See below Medication Changes From Visit See Summary below Admission HPI Per Admitting Provider Per Admitting Provider: This is a 58yo M [employer] inmate with a PMH of mood disorder and other medical problems listed below who presents with strokelike symptoms. Last known well at 1515. Reports having left sided weakness in arm and leg as well as slurred speech and facial droop that lasted for approximately 30 minutes, per patient. Was brought in by EMS and by the time he was evaluated by ED provider, weakness and symptoms had resolved. No Fall or LOC. Admission Exam Per Admitting Provider Constitutional: WD/WN, vitals as above, NAD, sitting up in bed, pleasant, conversing easily Respiratory: normal respiratory effort, lungs clear to auscultation, no wheeze, rales, rhonchi. Normal insp/exp effort, no accessory muscle use Cardiovascular: RRR, no murmur, no edema Vessels: no JVD or carotid bruit Chest: normal inspection of chest Abdomen: normal bowel sounds, soft, nontender, no hepatosplenomegaly Musculoskeletal: no cyanosis or clubbing, extremities motor strength 5/5 Skin: no rashes, warm and dry normal turgor Neurologic: PERRL, EOMI, accommodation nl, no face palsy, no dysarthria CN's II- XI intact bilaterally and moves all extremities. No focal neurological deficit was found. Psychiatric: A+Ox3, euthymic affect Principal Dx & Hospital Course #1 = Principal Diagnosis (1) Acute ischemic right MCA stroke: (2) Dyslipidemia: (3) Mood disorder: (4) Stroke-like symptoms: Plan This is a 58yo M [employer] inmate with a PMHx of mood disorder and other medical problems listed below who presents with strokelike symptoms. PT/OT/speech eval, neuro checks Acute ischemic stroke of right frontotemporal region Occlusion of sylvian branch of right middle cerebral artery Patient presented with slurring of speech and weakness on the left side which resolved on arrival to ED MRI brain showed acute ischemic stroke of right frontotemporal region CTA head and neck/MRA confirmed occlusion of sylvian branch of right MCA. Given 324mg aspirin, 300mg Plavix in the ED, continued with aspirin 81mg, plavix 75mg, Crestor 20mg daily Echo with bubble study showed no shunt fasting lipid panel normal hgba1c of 5.6 PT/OT/speech eval, neuro checks Neurology consulted Admitting provider had discussion with teleneurology from [place] after the MRI findings over the phone on 05/31. No indication for emergent transfer. Vessel occlusion is very distal from the site where intervention can be done. Recommended dual antiplatelet therapy, statin, echo, IV hydration, permissive hypertension for next 24 to 48 hours. Advised that if there is any progression of the neurological deficit or any new deficits arise; recommendation was to repeat CT head and CTA head and neck. On 06/01, notified by physical therapy that pt had new onset facial droop, and left sided upper and lower extremity weakness. Pt's last known well about 1pm, had no deficits on exam earlier in the day. Stroke alert was called and stat head CT and head and neck CTA ordered. Case discussed urgently with [place] teleneurologist Teleneurologist recommended transfer to [facility] for thromboembolectomy based on new findings, new proximal right MCA stroke. Pt transferred urgently to [facility] on 06/02/23 via air. Mood disorder Continue Abilify, Cogentin, Vistaril, trazodone DVT Ppx: SQ heparin Code status: FULL PCP: VIJAY Pathak Dispo: transferring Discharge Exam General: Alert, orientedx3. No acute distress Skin: No noted rashes or bruises Psych: Appropriate mood and affect Neuro: facial droop and left sided upper and lower extremity weakness HEENT: NC/AT, facial droop noted CV: RRR Resp: Breath sounds clear bilaterally, no increased effort of breathing. Abdomen: Soft, nontender, nondistended Extremities: No edema in lower extremities bilaterally. Updated Medication List Medication Instructions Recorded Confirmed Type aripiprazole 15 mg tablet (Abilify) 15 mg PO HS 06/01/23 06/01/23 History benztropine 0.5 mg tablet 0.5 mg PO HS 06/01/23 06/01/23 History hydroxyzine pamoate 50 mg capsule 150 mg PO HS 06/01/23 06/01/23 History omeprazole 20 mg capsule,delayed 20 mg PO DAILY 06/01/23 06/01/23 History release trazodone 100 mg tablet 200 mg PO HS 06/01/23 06/01/23 History Additional Medication Comments Current Inpatient Medications Acetaminophen (Acetaminophen 325 Mg Tab) 650 mg PO Q4H PRN PRN Reason: Pain or Fever Stop: 07/01/23 21:07 Aripiprazole (Aripiprazole 15 Mg Tab) [address] [facility] Stop: 07/01/23 21:29 Last Admin: 06/01/23 21:47 Dose: 15 mg Aspirin (Aspirin 81 Mg Ectab) 81 mg PO [facility] Stop: 07/02/23 08:59 Last Admin: 06/02/23 09:12 Dose: 81 mg Benztropine Mesylate (Benztropine Mesylate 0.5 Mg Tab) 0.[address] [facility] Stop: 07/01/23 21:29 Last Admin: 06/01/23 21:47 Dose: 0.5 mg Clopidogrel Bisulfate (Clopidogrel Bisulfate 75 Mg Tab) 75 mg PO [facility] Stop: 07/02/23 08:59 Last Admin: 06/02/23 09:12 Dose: 75 mg Heparin Sodium (Porcine) (Heparin Sod 5,000 Unit/0.5 Ml Vial) 5,000 units SQ Q8 [facility] Stop: 07/01/23 21:59 Last Admin: 06/02/23 06:26 Dose: 5,000 units Hydroxyzine HCl (Hydroxyzine Hcl 25 Mg Tab) [address] [facility] Stop: 07/01/23 21:29 Last Admin: 06/01/23 21:47 Dose: 150 mg Sodium Chloride (Nss) 1,000 mls @ 125 mls/hr IV .Q8H [facility] Stop: 07/02/23 01:29 Last Admin: 06/02/23 09:13 Dose: 125 mls/hr Sodium Chloride (Nss) 1,000 mls @ 100 mls/hr IV .Q10H [facility] Stop: 07/02/23 14:14 Ondansetron HCl (Ondansetron Inj 2 Mg/Ml 2 Ml Vial) 4 mg IV Q6H PRN PRN Reason: Nausea Stop: 07/01/23 21:07 Pantoprazole Sodium (Pantoprazole 40 Mg Tab) 40 mg PO DAILY [facility] Stop: 07/02/23 08:59 Last Admin: 06/02/23 09:12 Dose: 40 mg Polyethylene Glycol (Polyethylene (Miralax) 17 Gm Pack) 17 gm PO DAILY PRN PRN Reason: Constipation Stop: 07/01/23 21:07 Rosuvastatin Calcium (Rosuvastatin Calcium 20 Mg Tab) 20 mg PO QAM [facility] Stop: 07/02/23 08:59 Last Admin: 06/02/23 09:12 Dose: 20 mg Trazodone HCl (Trazodone Hcl 100 Mg Tab) 200 mg PO HS [facility] Stop: 07/01/23 21:29 Last Admin: 06/01/23 21:47 Dose: 200 mg Hospital Stay Data Consultations 06/01/23 18:03 ED Decision to Admit Stat 06/01/23 21:08 Consult Neurology Routine 06/02/23 14:19 Burn CD for patient Stat Diagnostic Imagining Performed 06/01/23 16:15 CT angio head w con Stat CT angio neck with con Stat CT head/brain wo con Stat 06/01/23 17:19 MR brain wo con Stat 06/01/23 17:20 MR angio head wo con Stat 06/01/23 18:02 MR angio neck wo/w con Stat 06/02/23 13:32 CT angio head w con Stat CT angio neck with con Stat CT head/brain wo con Stat Head CT 06/01/23 16:15 CT OF THE HEAD WITHOUT CONTRAST CLINICAL HISTORY: neuro deficit, acute stroke suspected COMPARISON STUDY: No previous studies for comparison. CT DOSE: 1123.21 mGy.cm TECHNIQUE: Helical axial images of the head were obtained without IV contrast. Automated exposure control was utilized for the study. A dose lowering technique was utilized adhering to the principles of ALARA. FINDINGS: No acute intracranial hemorrhage, midline shift or mass effect is present. There is possible hyperdensity within a sylvian branch of the right middle cerebral artery on image 9 of 28. The ventricular system is unremarkable. The basal cisterns are patent. No extra-axial collections are present. There are no findings to suggest acute dural sinus thrombosis or acute territorial infarct. No significant calvarial abnormalities are present. Visualized portions of the sinuses and mastoid air cells are clear. IMPRESSION: 1. No acute intracranial hemorrhage or mass effect. 2. Possible hyperdensity within the sylvian branch of the right middle cerebral artery. This may reflect thrombus and could be correlated with clinical evidence for a right MCA territory stroke. MRI of the brain could be obtained for further evaluation. Findings discussed with Dr. Mahoney at time of dictation. ACT 112: Negative or not required by law. Electronically signed by: Manuel Fritz M.D. 06/01/2023 4:42 PM Head CTA 06/01/23 16:15 CTA ANGIOGRAPHY OF THE HEAD CLINICAL HISTORY: neuro deficit, acute stroke suspected COMPARISON STUDY: No previous studies for comparison. TECHNIQUE: Helical axial images of the head were obtained following uneventful intravenous administration of 118 cc of Optiray. Sagittal and coronal reconstructions were viewed as well as maximal intensity projections on an independent 3-D workstation. Automated exposure control was utilized for the study. A dose lowering technique was utilized adhering to the principles of ALA RA. FINDINGS: No acute intracranial hemorrhage was identified on the head CT will be reported separately. Ventricular system is normal. Basal cisterns are patent. There are no extra axial collections. There is possible occlusion at the origin of a sylvian branch of the right middle cerebral artery on axial image 106 of 258. This could correspond to the hyperdense focus on head CT. The left M1 and M2 segments are patent. The left A2 segment is hypoplastic. Posterior circulation is intact. Right vertebral artery is dominant. There is no intracranial aneurysm. IMPRESSION: Possible occlusion at the origin of a sylvian branch of the right middle cerebral artery. This could be correlated with clinical evidence for an acute right MCA territory infarct. MRI could be obtained as indicated. ACT 112: Negative or not required by law. Electronically signed by: Manuel Fritz M.D. 06/01/2023 4:53 PM Neck CTA 06/01/23 16:15 CT ANGIOGRAPHY OF THE NECK WITH CONTRAST CLINICAL HISTORY: neuro deficit, acute stroke suspected COMPARISON STUDY: No previous studies for comparison. Technique: CT angiography of the carotid and vertebral arteries was obtained using Optiray and 3D reconstruction on an independent workstation. NASCET criteria was utilized. Automated exposure control was utilized for the study. A dose lowering technique was utilized adhering to the principles of ALARA. Findings: The bilateral vertebral arteries are patent. The left common carotid and cervical internal carotid arteries are patent. Shelf-like indentation of the proximal right internal carotid artery is noted. This is probably due to noncalcified atherosclerotic plaque. This results in approximate 40-50% stenosis of the proximal right internal carotid artery. There is no aneurysm within the neck. No acute dissection is present. IMPRESSION: 1. Focal shelf-like narrowing of the proximal right internal carotid artery which results in 40-50% narrowing. This is likely due to noncalcified atherosclerotic plaque or a carotid web. A dissection is considered less likely. 2. No additional stenoses within the bilateral common carotid, cervical internal carotid or vertebral arteries. ACT 112: Negative or not required by law. Electronically signed by: Manuel Fritz M.D. 06/01/2023 4:49 PM Brain MRI 06/01/23 17:19 MRI OF THE BRAIN WITHOUT CONTRAST CLINICAL HISTORY: L sided weakness COMPARISON STUDY: Head CT performed earlier today. TECHNIQUE: Utilizing a 1.5 Lizzie magnet and dedicated coil, multiplanar, multiecho imaging of the brain was performed without IV contrast. FINDINGS: There is a 3.9 x 1.7 cm focus of restricted diffusion within the right frontotemporal region. This is hypointense on the ADC map. This involves the insular cortex. This is consistent with an acute infarct. There is subtle associated FLAIR signal abnormality. There is no mass effect. There is no evidence for hemorrhagic conversion. No additional acute infarcts are present. Ventricular system is normal. Basal cisterns are patent. No extra axial collections are present. Calvarial signal is normal. No evidence for sinusitis. There is no mastoid fluid. IMPRESSION: 3.9 x 1.7 cm right frontotemporal acute infarct. This corresponds to the site of vessel occlusion on CTA. No mass effect. Subtle associated FLAIR signal abnormality. No hemorrhage. ACT 112: Negative or not required by law. Electronically signed by: Manuel Fritz M.D. 06/01/2023 7:10 PM Head MRA 06/01/23 17:20 MRA OF THE INTRACRANIAL CIRCULATION WITHOUT CONTRAST CLINICAL HISTORY: eval L sided weakness COMPARISON STUDY: Head CT and CTA of the head performed earlier today. TECHNIQUE: Utilizing a 1.5 Lizzie magnet and 3-D [id number] technique, unenhanced MRA of the intracranial circulation was obtained. FINDINGS: There is occlusion of a sylvian branch of the right middle cerebral artery shown on axial image 92 of 208. This corresponds to the site of occlusion shown on CT performed earlier today and the acute infarct shown on MRI of the brain which will be reported separately. There is asymmetric diminished flow within the right sylvian vessels. Otherwise, the intracranial vessels are patent. There is no intracranial aneurysm. No stenoses are identified. There is no dissection within the intracranial vessels. IMPRESSION: 1. Occlusion of a sylvian branch of the right middle cerebral artery which confirms the occlusion on CTA performed earlier today and corresponds to the acute infarct on brain MRI which will be reported separately. Asymmetric diminished flow within the right sylvian vessels. 2. Otherwise, patent intracranial vessels. ACT 112: Negative or not required by law. Electronically signed by: Manuel Fritz M.D. 06/01/2023 7:48 PM Neck MRA 06/01/23 18:02 MR angio neck wo/w con CLINICAL HISTORY: eval for stroke COMPARISON STUDY: CTA of the neck performed earlier today. TECHNIQUE: Utilizing a 1.5 Lizzie magnet and dedicated coil, unenhanced and contrast-enhanced MRA of the neck was obtained. Intravenous injection of 10 cc of Gadavist was uneventful. FINDINGS: This exam is moderately compromised by motion artifact. Focal narrowing of the proximal right internal carotid artery is better depicted on CTA performed earlier today . The left common carotid and cervical internal carotid arteries are unremarkable. Bilateral vertebral arteries are patent. IMPRESSION: 1. Exam moderately compromised by motion artifact. Focal narrowing of the proximal right internal carotid artery, better depicted on CTA performed earlier today. Please see that report for further discussion. 2. Otherwise, grossly unremarkable MRI of the neck. ACT 112: Negative or not required by law. Electronically signed by: Manuel Fritz M.D. 06/01/2023 8:[address] 06/02/23 13:32 CT head/brain wo con CLINICAL HISTORY: 58 years-old Male with neuro deficit, acute stroke suspected. Acute stroke like symptoms TECHNIQUE: Multiple axial CT images of the head were obtained without contrast. A dose lowering technique was utilized adhering to the principles of ALARA. CT DOSE: 1325.86 mGy.cm COMPARISON: Brain MRI 06/01/2023 FINDINGS: No acute intracranial hemorrhage, midline shift, intracranial mass, hydrocephalus, or abnormal extra-axial collection. Progressive cytotoxic edema related to the acute right MCA infarct, previously measured at 3.9 cm on yesterday's MRI. Right MCA thrombus. The calvarium is intact. The paranasal sinuses, mastoid air cells, and middle ear cavities are clear. IMPRESSION: 1. Progressive cytotoxic edema related to the acute right MCA infarct described on yesterday's MRI. 2. Please refer to the CTA head of same day for discussion of the right MCA thrombus. ACT 112: Negative or not required by law. The above report was generated using voice recognition software. It may contain grammatical, syntax or spelling errors. Electronically signed by: Schuyler Vinson M.D. 06/02/2023 2:08 PM Head CTA 06/02/23 13:32 CTA ANGIOGRAPHY OF THE HEAD CLINICAL HISTORY: neuro deficit, acute stroke suspected COMPARISON STUDY: CTA of the head and MRA of the head June 01, 2023. TECHNIQUE: Helical axial images of the head were obtained following uneventful intravenous administration of 119 cc of Optiray. Sagittal and coronal reconstructions were viewed as well as maximal intensity projections on an independent 3-D workstation. Automated exposure control was utilized for the study. A dose lowering technique was utilized adhering to the principles of ALARA. FINDINGS: Please note that the head CT will be reported separately. Hypodensity within the right MCA territory represents an acute infarct, better depicted on that exam. The intracranial portion of the right internal carotid artery is patent. There is abrupt cut off of the proximal right middle cerebral artery. This portion of the vessel was patent on CTA of June 01, 2023. Diminished flow within the sylvian branches of the right middle cerebral artery has significantly decreased since prior CTA. The left M1, M2, A1 and A2 segments are patent. The right A1 and A2 segments are patent. There is no intracranial aneurysm. The intracranial portions of the vertebral arteries are patent. The basilar artery is patent. The bilateral posterior cerebral arteries are patent. There is irregularity of the right P2 segment. This may be artifactual. IMPRESSION: 1. Interval occlusion of the proximal right middle cerebral artery, a new finding since CTA of June 01, 2023. Significant interval decrease in flow wi thin right MCA sylvian branches with multiple occluded sylvian branches. Thrombosis has progressed since prior CTA. These findings will be called/faxed to ordering provider at time of dictation. 2. Irregularity of the right P2 segment. This is probably artifactual. ACT 112: Negative or not required by law. Electronically signed by: Manuel Fritz M.D. 06/02/2023 2:11 PM Neck CTA 06/02/23 13:32 CT ANGIOGRAPHY OF THE NECK WITH CONTRAST CLINICAL HISTORY: neuro deficit, acute stroke suspected COMPARISON STUDY: CT neck 06/01/2023. Technique: CT angiography of the carotid and vertebral arteries was obtained using Optiray and 3D reconstruction on an independent workstation. NASCET criteria was utilized. Automated exposure control was utilized for the study. A dose lowering technique was utilized adhering to the principles of ALARA. Findings: The bilateral vertebral arteries are patent. Small focal fenestration within the mid left vertebral artery, unchanged. The left common carotid and cervical internal carotid arteries are patent. Shelf-like indentation of the proximal right internal carotid artery is again noted. This remains unchanged. This is probably due to noncalcified atherosclerotic plaque. This results in approximate 40-50% stenosis of the proximal right internal carotid artery. There is no aneurysm within the neck. No acute dissection is present. IMPRESSION: 1. Focal shelf-like narrowing of the proximal right internal carotid artery which results in 40-50% narrowing, unchanged. This is likely due to noncalcified atherosclerotic plaque or a carotid web. No evidence for a dissection. 2. No additional stenoses within the bilateral common carotid, cervical internal carotid or vertebral arteries. ACT 112: Negative or not required by law. Electronically signed by: Santy Sagastume M.D. 06/02/2023 2:09 PM Pending Results Patient Have Any Pending Studies at Discharge: No Discharge Instructions Given to Patient (Per Discharging Provider) Mr Sahrma, You are being transferred to [facility] as your stroke blockages are progressing for a higher level of care and evaluation. You will be flown by air. Total Time Total Time Spent Total Time Spent (In Minutes): > 30 minutes
[2023-06-02 14:45] LABS: Albumin Globulin Ratio 1.4 (0.9-2); Albumin Level 3.5 gm/dl (3.4-5.0); BUN Creatinine Ratio 12.9 (10-20); Bilirubin,Total 0.4 mg/dl (0.2-1.0); Calcium 8.6 mg/dl (8.6-10.3); Est GFR (African American) 95.9 ml/min; Est GFR (Non-African American) 82.8 ml/min; Globulin 2.5 gm/dl (2.5-4.0); Magnesium 1.8 mg/dl (1.7-2.4); Potassium 4.2 mmol/L (3.5-5.1)
[2023-06-02 14:49] LABS: Troponin I High Sensitivity 2.5 pg/ml (0-20)
[2023-06-02] MEDS: ONDANSETRON INJ 2 MG/ML 2 ML VIAL IV PRN (15:09)
== END 2023-06-02 15:25 | disposition short-term general hospital (02) | DRG 66 ==
LOC: ED 16:35 → SUATTDRO 18:32 → 2E 18:32